=== PATIENT | male | born 1975 | race Caucasian/White ===

== ENCOUNTER 2016-12-05 21:24 | Emergency (ER) | payer OTHER ==
[~2016-12-05] VITALS: Ht 182.9 cm; Wt 79.4 kg
[2016-12-05 22:04] VITALS: BP 154/74
[2016-12-05 22:22] LABS: ABSOLUTE BASOPHIL COUNT 0.1 /CUMM (0.0-0.2); ABSOLUTE EOSINOPHIL COUNT 0.1 /CUMM (0.0-0.7); ABSOLUTE GRANULOCYTE CT 11.9 /CUMM (1.4-6.5); ABSOLUTE LYMPH COUNT 1.5 /CUMM (1.2-3.4); ABSOLUTE MONOCYTE COUNT 0.7 /CUMM (0.10-0.60); BASOPHIL % 0.8 % (0.0-2.0); EOSINOPHIL % 0.5 % (0-5); GRANULOCYTE % 83.3 % (42.2-75.2); HEMATOCRIT 49.9 % (42-52); MEAN CORPUSCULAR HGB 30.7 PG (27.0-31.0); MEAN CORPUSCULAR HGB CONC 33.5 G/DL (33.0-37.0); MEAN CORPUSCULAR VOLUME 91.8 FL (80.0-94.0); MEAN PLATELET VOLUME 7.9 FL (7.4-10.4); PLATELET COUNT 220 /CUMM (130-400); RBC DISTRIBUTION WIDTH 13.4 % (11.5-14.5); RED BLOOD CELL CT 5.43 /CUMM (4.70-6.10); WHITE BLOOD CELL COUNT 14.3 /CUMM (4.8-10.8)
--- NOTE | 2016-12-05 23:37 | ED GI/GU/ABDOMINAL COMPLAINT ---
History of Present Illness General Chief Complaint: Abdominal Pain/Flank Pain Stated Complaint: RT FLANK PAIN Source: patient Exam Limitations: no limitations Vital Signs & Intake/Output Vital Signs & Intake/Output Vital Signs Date Time Temp Pulse Resp B/P B/P Pulse O2 O2 Flow FiO2 Mean Ox Delivery Rate 12/05 2204 97.5 65 20 154/74 98 Room Air ED Intake and Output 12/06 0000 12/05 1200 Intake Total Output Total 275 Balance -275 Output, Urine 275 Patient 175 lb Weight Weight Reported by Patient Measurement Method Allergies Coded Allergies: pollen extracts (SNEEZE 12/05/16) Uncoded Allergies: DUST (SNEEZE 12/05/16) Reconcile Medications Ciprofloxacin HCl (Cipro) 500 MG TABLET 1 TAB PO BID KIDNEY STONE Ondansetron (Zofran Odt) 4 MG TAB.RAPDIS 1 TAB SL TID PRN NAUSEA Oxycodone HCl/Acetaminophen (Percocet 5-325 MG Tablet) 5 MG-325 MG TABLET 1 TAB PO BID PRN PAIN Tamsulosin HCl (Flomax) 0.4 MG CAP.ER.24H 1 CAP PO DAILY KIDNEY STONE Triage Note: PT TO ED C/O RT SIDE AND RT FLANK PAIN FOR 1 HR. DENIES JOSH HEMATURIA. SOME NAUSEA. C/O COLD SWEATS. PT SOBBING IN TRIAGE Triage Nurses Notes Reviewed? yes HPI: This patient is a 41 year old male who presented for evaluation of right lower back pain x2 hours. He reported that the pain has been constant. Rated at an 8 out of 10. Nonradiating. No palliative or provoking factors. The patient reported "difficulty peeing today," but denied any burning with urination, frequency, urgency, or blood in the urine. Denied any abdominal pain, nausea, or vomiting. He did reported, "shaking chills." Denied fevers, chest pain, or trouble breathing. (BLANCA COOK PA-C) Past History Travel History Traveled to [place] past 21 day No Medical History Any Pertinent Medical History? see below for history Surgical History Surgical History: non-contributory Psychosocial History What is your primary language [place] Tobacco Use: Never used ETOH Use: occasional use Illicit Drug Use: denies illicit drug use Family History Hx Contributory? No (BLANCA COOK PA-C) Review of Systems Review of Systems Constitutional: Reports: see HPI. EENTM: Reports: no symptoms. Respiratory: Reports: no symptoms. Cardiovascular: Reports: no symptoms. GI: Reports: no symptoms. Genitourinary: Reports: see HPI. Musculoskeletal: Reports: see HPI. Skin: Reports: no symptoms. Neurological/Psychological: Reports: no symptoms. All Other Systems: Reviewed and Negative (JOEY NAPIER,BLANCA) Review of Systems Hematologic/Endocrine: Reports: no symptoms. Immunologic/Allergic: Reports: no symptoms. (JACK FIGUEROA,[place]) Physical Exam Physical Exam Gastrointestinal: normal bowel sounds, soft, non-tender, no organomegaly, no rebound or guarding. no mcburny's point tenderness. Comments: General: Well-developed, well-nourished person in moderate distress HEENT: Head normocephalic, moist mucous membranes Neck: Supple Back: Normal gait. No CVA tenderness Respiratory: No respiratory distress. Speaking in full sentences Neuro: A&Ox3. Cranial nerves grossly intact Skin: Warm and dry Psych: Normal mood and affect Core Measures ACS in differential dx? No Severe Sepsis Present: No Septic Shock Present: No (JOEY NAPIER,BLANCA) Progress Differential Diagnosis: AAA, AMI, appendicitis, biliary colic, bowel obstruction , colon cancer, cholecystitis, diverticulitis, gastritis, ischemic bowel, inflamm bowel dis, pancreatitis, PUD/GERD, perforated viscous, pyelonephritis, ureterolithiasis, urinary retention, urethritis, UTI/pyelo Diagnostic Imaging: Viewed by Me: CT Scan. Discussed w/RAD: CT Scan. Radiology Impression: PATIENT: CHICHI STEPHENS PRESENT AGE: 41 PATIENT ACCOUNT NO: [id number] : 73 LOCATION: [facility] ORDERING PHYSICIAN: BLANCA COOK PA-C SERVICE DATE: 12/05/16 EXAM TYPE: CAT - CT ABD & PELVIS W/O IV CONTRAS EXAMINATION: CT ABDOMEN AND PELVIS WITHOUT CONTRAST CLINICAL INFORMATION: Right flank pain. COMPARISON: None TECHNIQUE: Multidetector volumetric imaging was performed from the superior aspect of the liver through the pubic symphysis. Sagittal and coronal reformatted images were obtained on the technologist's workstation. DLP: 285 mGy -cm FINDINGS: LUNG BASES: The visualized lung bases are unremarkable. LIVER, GALLBLADDER, AND BILIARY TREE: The liver is normal in size, shape, and attenuation. No focal hepatic lesion or biliary ductal dilatation is present. The gallbladder is unremarkable with no evidence of radiopaque gallstones, gallbladder wall thickening, or obvious pericholecystic inflammatory changes. PANCREAS: Unremarkable. SPLEEN: Unremarkable. ADRENAL GLANDS: Unremarkable. KIDNEYS AND URETERS: The kidneys are normal in size, shape, and attenuation. There is mild right hydroureteronephrosis. There is a 0.2 cm calculus at the ureterovesicular junction. There is a 0.1 cm right lower pole nonobstructing calculus 10 cm from the posterior axillary line. There is a 0.2 cm left midpole calculus 7 cm from the posterior axillary line. A 0.3 cm left mid to upper pole calculus is 7 cm from the posterior axillary line. Right periureteral stranding is present. BLADDER: Unremarkable. GASTROINTESTINAL TRACT: Stomach and small bowel are unremarkable. No dilated loops of bowel or evidence of obstruction. No colonic wall thickening or inflammatory change. Normal appendix. No free air or free fluid. ABDOMINAL WALL: No significant hernia is appreciated. LYMPH NODES: Normal. VASCULAR: Unremarkable. PELVIC VISCERA: The prostate and seminal vesicles are unremarkable. OSSEOUS STRUCTURES: No acute or suspicious osseous abnormality. IMPRESSION: Mild right hydroureteronephrosis with periureteral stranding. 0.2 cm obstructing calculus at the ureterovesicular junction. Additional nonobstructing bilateral renal calculi. DICTATED BY: RENATA SANTANA MD DATE/TIME DICTATED:12/05/162346 DOORPERSON:MISTY DATE/TIME TRANSCRIBED:12/05/162346 CONFIDENTIAL, DO NOT COPY WITHOUT APPROPRIATE AUTHORIZATION. <Electronically signed in Other Vendor System> SIGNED BY: RENATA SANTANA MD 12/05/16 8002 Initial ED EKG: none Comments: 12/06/2016 12:32:11 PM: SPOKE TO ON-CALL UROLOGIST. RECOMMNDED FLOMAX AND OUTPATIENT PAIN CONTROL. PATIENT INSTRUCTED TO FOLLOW-UP IN UROLOGIST OFFICE AND TO RETURN FOR ANY WORSENING SYMPTOMS OR CONCERNS. (JOEY NAPIER,BLANCA) Plan of Care: Orders Procedure Date/time Status URINALYSIS 12/05 2213 Complete COMPREHENSIVE METABOLIC PANEL 12/05 2213 Complete CBC WITHOUT DIFFERENTIAL 12/05 2213 Complete Current Medications Sig/Gorge Start time Last Medication Dose Stop Time Status Admin Morphine Sulfate 4 MG ONCE ONE 05/11 2300 CAN (Morphine) 12/05 230 Laboratory Tests 12/05/16 2333: Urinalysis MOD H, Urine Color STRAW, Urine Clarity HAZY H, Urine pH 8.0, Ur Specific [place] 1.020, Urine Protein NEG, Urine Ketones NEG, Urine Nitrite NEG, Urine Bilirubin NEG, Urine Urobilinogen 0.2, Ur Leukocyte Esterase NEG, Ur Microscopic SEDIMENT EXAMINED, Urine Hemoglobin NEG, Urine Glucose NEG 12/05/16 2216: Anion Gap 15, Estimated GFR > 60, BUN/Creatinine Ratio 22.0, Glucose 120 H, Calcium 9.8, Total Bilirubin 0.8, AST 30, ALT 63, Alkaline Phosphatase 101, Total Protein 7.2, Albumin 4.7, Globulin 2.5, Albumin/Globulin Ratio 1.9, CBC w Diff NO MAN DIFF REQ, RBC 5.43, MCV 91.8, MCH 30.7, RDW 13.4, MPV 7.9, Gran % 83.3 H, Lymphocytes % 10.3 L, Monocytes % 5.1, Eosinophils % 0.5, Basophils % 0.8, Absolute Granulocytes 11.9 H, Absolute Lymphocytes 1.5, Absolute Monocytes 0.7 H, Absolute Eosinophils 0.1, Absolute Basophils 0.1, PUBS MCHC 33.5 Departure Departure Disposition: HOME OR SELF CARE Condition: Stable Clinical Impression Primary Impression: Ureterolithiasis Referrals: RETA FIGUEROA,PAT Daigle PATIENT HAS NO PRIMARY CARE DR (PCP/Family) Additional Instructions: TAKE MEDICATION FOR PAIN PRESCRIBED. TAKE MEDICATION FOR NAUSEA PRESCRIBED. TAKE ANTIBIOTIC PRECRIBED AND FOR THE FULL DURATION. STAY HYDRATED. FOLLOW-UP WITH THE UROLOGIST WHOSE INFORMATION HAS BEEN PROVIDED TO YOU IN THIS PACKET. RETURN FOR ANY WORSENING SYMPTOMS OR CONCERNS. Departure Forms: Customer Survey General Discharge Information Prescriptions: Current Visit Scripts Tamsulosin HCl (Flomax) 1 CAP PO DAILY #10 CAP Ciprofloxacin HCl (Cipro) 1 TAB PO BID #14 TAB Oxycodone HCl/Acetaminophen (Percocet 5-325 MG Tablet) 1 TAB PO BID PRN PAIN #10 TAB Ondansetron (Zofran Odt) 1 TAB SL TID PRN NAUSEA #10 TAB (BLANCA COOK PA-C) PA/PERSON INVESTIGATOR Co-Sign Statement Statement: ED Attending supervision documentation- I saw and evaluated the patient. I have also reviewed all the pertinent lab results and diagnostic results. I agree with the findings and the plan of care as documented in the PA's/PERSON INVESTIGATOR's documentation. x I have reviewed the ED Record and agree with the PA's/PERSON INVESTIGATOR's documentation. [] Additions or exceptions (if any) to the PAs/PERSON INVESTIGATOR's note and plan are summarized below: [] (JACK FIGUEROA,[place])
--- NOTE | 2016-12-05 23:56 | CT SCAN REPORT ---
EXAMINATION: CT ABDOMEN AND PELVIS WITHOUT CONTRAST CLINICAL INFORMATION: Right flank pain. COMPARISON: None TECHNIQUE: Multidetector volumetric imaging was performed from the superior aspect of the liver through the pubic symphysis. Sagittal and coronal reformatted images were obtained on the technologist's workstation. DLP: 285 mGy-cm FINDINGS: LUNG BASES: The visualized lung bases are unremarkable. LIVER, GALLBLADDER, AND BILIARY TREE: The liver is normal in size, shape, and attenuation. No focal hepatic lesion or biliary ductal dilatation is present. The gallbladder is unremarkable with no evidence of radiopaque gallstones, gallbladder wall thickening, or obvious pericholecystic inflammatory changes. PANCREAS: Unremarkable. SPLEEN: Unremarkable. ADRENAL GLANDS: Unremarkable. KIDNEYS AND URETERS: The kidneys are normal in size, shape, and attenuation. There is mild right hydroureteronephrosis. There is a 0.2 cm calculus at the ureterovesicular junction. There is a 0.1 cm right lower pole nonobstructing calculus 10 cm from the posterior axillary line. There is a 0.2 cm left midpole calculus 7 cm from the posterior axillary line. A 0.3 cm left mid to upper pole calculus is 7 cm from the posterior axillary line. Right periureteral stranding is present. BLADDER: Unremarkable. GASTROINTESTINAL TRACT: Stomach and small bowel are unremarkable. No dilated loops of bowel or evidence of obstruction. No colonic wall thickening or inflammatory change. Normal appendix. No free air or free fluid. ABDOMINAL WALL: No significant hernia is appreciated. LYMPH NODES: Normal. VASCULAR: Unremarkable. PELVIC VISCERA: The prostate and seminal vesicles are unremarkable. OSSEOUS STRUCTURES: No acute or suspicious osseous abnormality. IMPRESSION: Mild right hydroureteronephrosis with periureteral stranding. 0.2 cm obstructing calculus at the ureterovesicular junction. Additional nonobstructing bilateral renal calculi.
[2016-12-06] MEDS ORDERED: PERCOCET 5-3251 EACH PO (00:34)
[2016-12-06] MEDS ORDERED: FLOMAX0.4 M1 PO (00:34)
[2016-12-06] MEDS ORDERED: CIPRO500 M1 PO (00:34)
[2016-12-06] MEDS ORDERED: ZOFRAN ODT4 M1 SL (00:34)
== END 2016-12-06 00:46 ==
LOC: ERH 21:24
PROVIDERS: Emergency Medicine
DX: N20.1 Calculus of ureter (principal)
CPT/HCPCS: 74176; 81001; 96361; 96374; 96375; 96376; J1885; J2405